=== PATIENT | male | born 1975 | race Caucasian/White ===

== ENCOUNTER → 2017-06-03 | Day surgery (SDC) | payer OTHER ==
[~2017-06-03] MED LIST: NORCO 7.5-3251 EACH PO
--- NOTE | ~2017-06-03 | OR ---
Unit #: [id number] #: [id number] Patient: MALINI SIN [id number] [address] [place], [place] [address] [id number] O MR#: [id number] NAME: MALINI SIN ROOM: Date of Procedure: 06/03/2017 Admission Date: 06/03/2017 Surgeon: Dany Billings M.D. : 1975 Attending Physician: Dany Billings M.D. Referring Physician: Dany Billings M.D. Primary Care Physician: Simon Wagoner M.D. OPERATIVE REPORT JOB NOTE: CC: DR. SIMON WAGONER PREOPERATIVE DIAGNOSIS Thrombosed external hemorrhoid. POSTOPERATIVE DIAGNOSIS Thrombosed external hemorrhoid. PROCEDURES PERFORMED 1. Examination under anesthesia. 2. Excision of thrombosed external hemorrhoid. ANESTHESIA General LMA anesthesia with 0.5% Marcaine plain local anesthesia. FINDINGS The area was excised and sent to pathology. SPECIMENS Sent to pathology. COMPLICATIONS None apparent. CONDITION The patient tolerated the procedure well. INDICATIONS FOR PROCEDURE The patient is a 42-year-old white male, who presents with a thrombosed external hemorrhoid. He presents at this time for exam under anesthesia and possible excision. DESCRIPTION OF PROCEDURE After obtaining informed consent as well as receiving preoperative antibiotics, the patient was brought to the operating room and after adequate general LMA anesthesia was obtained, he was very carefully placed into the lithotomy position using candy-cane stirrups with all extremities manipulated very carefully and all pressure points carefully padded. His perineum and perianal area were prepped and draped in a sterile fashion. His anal sphincter was gently dilated with 1 and 2, then 3 fingers. An operating anoscope was placed into proper position. No other obvious abnormalities were seen. At this point in time, the thrombosed hemorrhoid Unit #: [id number] #: [id number] Patient: MALINI SIN was grasped with an Allis clamp. At this junction with the anal verge, the Harmonic kirt were used to excise the area with good hemostasis. The specimen sent to pathology. The mucosa was reapproximated with a running locking 2-0 chromic suture. The area was infiltrated with 0.5% Marcaine plain local anesthesia. A Gelfoam pack was placed into the anal canal. 4x4s were placed and an ABD pad and mesh panties. Needle counts, sponge counts, and instrument counts were all correct as reported by the scrub nurse x2. The patient went from the operative room to recovery room in stable condition. Dictated by... Los Saavedra/jose TD: 06/03/2017 15:47 JOB #: [id number] CC: [facility] OPERATIVE REPORT Page 1 of 1 X Dany Billings MD X PROCEDURE OPERATIVE NOTE
== END | disposition home or self-care (01) ==
LOC: CSUR 06:34
DX: K64.5 Perianal venous thrombosis (principal); Z98.52 Vasectomy status; Z83.3 Family history of diabetes mellitus; Z82.49 Family history of ischemic heart disease and other diseases of the circulatory system; Z80.9 Family history of malignant neoplasm, unspecified
CPT/HCPCS: 88304; J2250; J2405; J3010

== ENCOUNTER 2017-07-25 09:24 | Emergency (ER) | payer OTHER ==
--- NOTE | ~2017-07-25 | CT4 ---
[facility] A Service of [facility] & [facility] RADIOLOGY TEXT RESULTS PATIENT: MALINI SIN LOCATION: SED : [birth year] UNIT #: [id number] AGE: [address]: Melba Wilson APRN SEX: M ORDER DR: [id number] [address] [address] [id number] MR#: [id number] Acc #: [id number] NAME: MALINI SIN : 1975 SEX: M STUDY DATE/TIME: 07/25/2017 10:39 UNIT: SED ROOM: STUDY DESCRIPTION: CT Abd and Pelv Wo Cont Attending Physician: Melba Wilson A.P.R.N. Ordering Physician: Melba Hendricks A.P.R.N. Primary Care Physician: Simon Nolasco M.D. MEDICAL IMAGING REPORT This report is preliminary unless electronic signature is present. EXAM CT abdomen and pelvis without contrast, 07/25/2017 10:39 hours HISTORY 42-year-old man with right-sided abdominal pain and nausea beginning this morning. Possible kidney stone. 3+ blood in urine. COMPARISON None TECHNIQUE Helical noncontrasted images were obtained from the lung bases through the pubic symphysis without oral or intravenous contrast. Sagittal and coronal reconstructions were performed. Total exam DLP 1766 mGy-cm. This CT exam was performed with one or more of the following radiation dose reduction techniques: automatic exposure control, adjustment of mA and/or kV according to patient size, and iterative reconstruction. FINDINGS Images through the lung bases are clear. There are no effusions. There is a very small hiatal hernia. Noncontrasted images of the liver demonstrate a vague low-density lesion in the inferior aspect right lobe, likely a tiny cyst. There is no suspicious mass. The spleen, pancreas, gallbladder and bile ducts are normal. The adrenal glands are normal. The right kidney demonstrates no intrarenal stones, obstruction or ureteral stone. The left kidney and demonstrates a punctate stone in the upper pole, nonobstructing. There is mild pelvocaliectasis with a 5.0 x 7.0 mm stone at the left ureteropelvic junction. No stranding around the STS. [facility] A Service of [facility] & [facility] RADIOLOGY TEXT RESULTS PATIENT: MALINI SIN LOCATION: SED : [birth year] UNIT #: [id number] AGE: [address]: Melba Wilson APRN SEX: M ORDER DR: renal pelvis or ureter. The distal left ureter is decompressed and the bladder is normal. The stomach and small bowel are decompressed and normal in appearance. The appendix is normal. There is no colonic wall thickening or colonic distension. There are uncomplicated diverticula of the distal descending colon and sigmoid colon. CT pelvis is negative. IMPRESSION 1. There is a 5.0 x 7.0 mm stone at the left ureteropelvic junction resulting in only mild pelvocaliectasis without surrounding fluid or edema. There is very small punctate 2.0 mm stone nonobstructing in the upper pole left kidney. 2. No distension of the small bowel or colon. Normal appendix. 3. Diverticulosis of the distal descending colon and sigmoid colon without evidence of diverticulitis. Dictated by... Sejal Sandhu M.D. THIS IS AN ELECTRONICALLY VERIFIED REPORT Sejal Sandhu M.D. at 08/19/2017 9:33 AM Hussein TD: 07/25/2017 11:53 JOB #: [id number] MEDICAL IMAGING REPORT Page 1 of 1
[2017-07-25 10:11] LABS: URINE APPEARANCE CLOUDY; URINE BILIRUBIN NEG (NEG); URINE BLOOD 3+ (NEG); URINE COLOR AMBER; URINE GLUCOSE NEG (NORM); URINE KETONE NEG (NEG); URINE LEUKOCYTE ESTERASE NEG (NEG); URINE NITRATE NEG (NEG); URINE PH 5.5 (5-8); URINE PROTEIN 2+ (NEG); URINE SPECIFIC GRAVITY >=1.030 (1.003-1.035)
[2017-07-25 10:14] LABS: URINE SOURCE CLEAN CATCH
[2017-07-25 10:15] LABS: MICRO INDICATED? YES
[2017-07-25 10:18] LABS: CULTURE INDICATED? YES; URINE BACTERIA 1+ (NEG); URINE RBC INNUM /[HPF] (0-2)
[2017-07-25 10:19] LABS: URINE AMORPHOUS SEDIMENT AMORP URATES; URINE SQUAMOUS EPITHELIAL CELL RARE /[HPF]; URINE YEAST PRESENT
[2017-07-25 10:50] LABS: BASOPHIL# 0.1 X10e3 (0-0.3); BASOPHIL% 0.5 % (0-2.5); DIFF IND NO; EOSINOPHIL# 0.1 X10e3 (0-0.7); HEMATOCRIT 49.3 % (38.0-50.0); HEMOGLOBIN 16.6 gm/dL (13.0-16.0); LYMPHOCYTE# 2.7 X10e3 (1.0-3.5); LYMPHOCYTE% 25.6 % (17.0-45.0); MEAN CELL VOLUME 87.1 FL (83-96); MEAN CORPUSCULAR HEMOGLOBIN 29.4 PG (28-34); MEAN CORPUSCULAR HGB CONC 33.7 g/dL (30-36); MONOCYTE# 0.7 X10e3 (0-1.0); MONOCYTE% 6.7 % (3.0-12.0); NEUTROPHIL% 66.2 % (40-75); PLATELET COUNT 163 X10e3 (140-420); RED BLOOD COUNT 5.65 X10e (3.90-5.60); RED CELL DISTRIBUTION WIDTH 13.9 % (11.0-15.5); WHITE BLOOD COUNT 10.6 X10e3 (4.0-10.5)
[2017-07-25 10:56] LABS: BUN/CREATININE RATIO 11.81; CREATININE SERUM 1.1 mg/dL (0.6-1.4); GLOM FILT RATE Estimated 83.5 mL/min (>60); POTASSIUM 4.2 mmol/L (3.5-5.1)
== END 2017-07-25 12:05 | disposition home or self-care (01) ==
LOC: SED 09:24
PROVIDERS: Emergency Medicine; Nurse Practitioner
DX: N20.1 Calculus of ureter (principal); B37.9 Candidiasis, unspecified
CPT/HCPCS: 36415; 74176; 80048; 81003; 85025; 87086; 96361; 96374; 96375; 99284; J1885; J2405